=== PATIENT | female | born 1975 | race Hispanic/Latino ===

== ENCOUNTER 2024-12-16 14:44 | Emergency (ER) | payer BC ==
[~2024-12-16] VITALS: Ht 154.9 cm; Wt 70.3 kg
[2024-12-16 15:48] VITALS: TEMP 98.7
[2024-12-16 16:14] LABS: BASOPHILS % 0.4 % (0.0-1.0); EOSINOPHILS % 1.0 % (0.0-6.0); LYMPHOCYTES % 19.3 % (18.0-39.1); MONOCYTES % 5.8 % (4.4-11.3); NEUTROPHILS % 73.1 % (38.7-80.0); RED CELL DISTRIBUTION WIDTH 12.3 % (11.7-14.4)
[2024-12-16 16:44] LABS: EST GLOMERULAR FILTRATION RATE 109.0 ML/MIN (>=60)
[2024-12-16 16:52] LABS: LEUKOCYTE ESTERASE ,URINE NEGATIVE (NEGATIVE); PROTEIN,URINE DIPSTICK NEGATIVE (NEGATIVE); URINE UROBILINOGEN 0.2 mg/dL (0.2 - 1)
[2024-12-16 16:55] LABS: EPITHELIAL CELLS,URINE MANY /LPF; WBC,URINE (MAN) 0-5 /HPF (0-5)
[2024-12-16] MEDS ORDERED: PANTOPRAZOLE SO40 MG PO (21:19)
[2024-12-16 21:47] VITALS: PULSE 65; RESP 18; O2SAT 100
[2024-12-16 21:53] VITALS: TEMP 98.4
== END 2024-12-16 21:52 | disposition home or self-care (01) ==
LOC: ER 19:17
DX: R10.13 Epigastric pain (principal); K29.70 Gastritis, unspecified, without bleeding; R53.83 Other fatigue; M25.532 Pain in left wrist; M25.531 Pain in right wrist; M25.522 Pain in left elbow; M25.521 Pain in right elbow; M25.572 Pain in left ankle and joints of left foot; M25.571 Pain in right ankle and joints of right foot; I10 Essential (primary) hypertension; E78.5 Hyperlipidemia, unspecified; D64.9 Anemia, unspecified; F41.9 Anxiety disorder, unspecified; Z86.73 Personal history of transient ischemic attack (TIA), and cerebral infarction without residual deficits
CPT/HCPCS: 36415; 80053; 81001; 85025; 86308; 99284; J2470